=== PATIENT | male | born 1960 | race Caucasian/White ===

== ENCOUNTER → 2023-04-09 | Outpatient (CLI) | payer MEDICARE ==
--- NOTE | 2023-04-09 09:00 | XR ---
EXAMINATION TYPE: XR cervical spine limited DATE OF EXAM: 04/09/2023 COMPARISON: NONE HISTORY: Pain TECHNIQUE: Four views are submitted. FINDINGS: The odontoid is intact. There are no compression deformities. The prevertebral soft tissue structur es are within normal limits. Diffuse osteopenia with moderate to severe degenerative disc disease C4 -5, C5-6. Grade 1 anterolisthesis C7-T1. Multilevel facet arthropathy. Question of chronic right clav icular deformity. IMPRESSION: 1. Diffuse osteopenia within the moderate to severe multilevel degenerative disc disease.
== END | disposition home or self-care (01) ==
LOC: RADXRMAIN 08:34
PROVIDERS: ATTEND Family Medicine
DX: M50.321 Other cervical disc degeneration at C4-C5 level (principal); M85.88 Other specified disorders of bone density and structure, other site
CPT/HCPCS: 72040

== ENCOUNTER → 2023-05-07 | Outpatient (CLI) | payer OTHER ==
--- NOTE | 2023-05-09 12:05 | BD ---
EXAMINATION TYPE: Axial Bone Density DATE OF EXAM: 05/07/2023 CLINICAL HISTORY: 63 years old Male. ICD-10 CODE: M85.80 OT DISRD OF BONE DENSITY AND STRUCTURE, UN Height: 66.5 Weight: 122.9 FRAX RISK QUESTIONS: Alcohol (3 or more units per day): no Family History (Parent hip fracture): no Glucocorticoids (More than 3mos): no (Ex: prednisone, prednisolone, methylprednisolone, dexamethasone, and hydrocortisone). History of Fracture in Adulthood: yes Secondary Osteoporosis: 1. Type 1 Diabetes: no 2. Hyperthyroidism: no 3. Menopause before 45: n/a 4. Malnutrition: no 5. Chronic liver disease: no Rheumatoid Arthritis: no Current Tobacco Use: no RISK FACTORS HISTORY OF: History of Wrist Fracture: right When: 2010 Surgery to Spine/Hip(right/left)/Wrist (right/left): no Additional History: EXAM MEASUREMENTS: Bone mineral densitometry was performed using the [employer] System. Bone mineral density as measured about the Lumbar spine is: ----- L1-L4(G/cm2): 1.005 T Score Values are as follows: ----- L1: -2.5 ----- L2: -2.3 ----- L3: -1.2 ----- L4: -0.2 ----- L1-L4: -1.5 Z Score Values are as follows: ----- L1: -1.6 ----- L2: -1.4 ----- L3: -0.4 ----- L4: 0.6 ----- L1-L4: -0.6 Bone mineral density : baseline Bone mineral density about the R hip (g/cm2): 0.650 Bone mineral density about the L hip (g/cm2): 0.605 T Score values are as follows: -----R Neck: -3.1 -----L Neck: -3.3 -----R Total: -2.8 -----L Total: -3.2 Z Score values are as follows: -----R Neck: -2.0 -----L Neck: -2.2 -----R Total: -2.1 -----L Total: -2.4 Bone mineral density : baseline FRAX%s: The graph provided illustrates a 21.6% chance for a major osteoporotic fx and a 10.9% chance for the hips probability for fx in 10 years time. IMPRESSION: Osteoporosis (T Score less than -2.5). There is increased fracture risk and therapy is usually indicated based on age. Re-Screen 1-2 years. NOTE: T-SCORE=SD OF THE YOUNG ADULT MEAN.
== END | disposition home or self-care (01) ==
LOC: RADBDWWP 07:26
PROVIDERS: ATTEND Family Medicine
DX: M81.0 Age-related osteoporosis without current pathological fracture (principal)
CPT/HCPCS: 77080

== ENCOUNTER → 2024-04-12 | Outpatient (CLI) | payer OTHER ==
--- NOTE | 2024-04-12 14:03 | MR ---
EXAMINATION TYPE: MR iac wo/w con DATE OF EXAM: 04/12/2024 9:50 AM COMPARISON: None. CLINICAL INDICATION: Male, 64 years old with history of H93.19 TINNITUS; PHH, ringing in ears, histor y of subdural hematoma 2006. TECHNIQUE: Multi planar, multi sequence imaging was performed through the brain. Specialized thin s equences were obtained through the internal auditory canals. Pre-and post gadolinium sequences were obtained. IV Contrast: 5.5 mL Gadobutrol FINDINGS: The campbell-white junctions, ventricular system, and cisterns appear unremarkable. Scattered foci of h igh T2 signal intensity are seen within the periventricular white matter. Midline structures show no abnormality. Diffusion-weighted imaging shows no evidence of restricted diffusion. The susceptibility weighted images do not reveal any evidence for micro-hemorrhage. The bone marrow signal is within normal limits. Paranasal sinuses and mastoid air cells: Mild scattered paranasal sinus disease. Visualized orbits: Orbital contents are intact. After administration of gadolinium, no abnormal enhancement is seen. The internal auditory canal sequences demonstrate no significant irregularity. The 7th cranial nerve s, 8 cranial nerves, and cerebellar pontine angles appear unremarkable. After the administration catherine olinium, no abnormal enhancement is seen within the internal auditory canals. Vascular loop: None. IMPRESSION: No evidence of intracranial mass nor acute/subacute CVA. No evidence of internal auditory canal abnormality. Nonspecific white matter changes, likely secondary to small vessel ischemic disease. [facility], , 04/12/2024 2:00 PM
== END | disposition home or self-care (01) ==
LOC: RADMRIMAIN 08:32
PROVIDERS: ATTEND Otolaryngology
DX: H93.13 Tinnitus, bilateral (principal); R90.82 White matter disease, unspecified
CPT/HCPCS: 70553; A9585